=== PATIENT | female | born 1955 | race Caucasian/White ===

== ENCOUNTER → 2022-04-22 14:08 | Outpatient (CLI) | payer MEDICARE, SELFPAY | PROVIDERS: PCP Physician Assistant; Visit Provider Physician Assistant | DX: R30.0 Dysuria (principal); R35.0 Frequency of micturition | CPT/HCPCS: 87077; 87086; 87186 ==

== ENCOUNTER → 2022-05-07 11:20 | Outpatient (CLI) | payer MEDICARE, SELFPAY ==
[2022-05-07 20:26] LABS: Appearance Urine UA CLEAR; Bilirubin Urine UA NEGATIVE (NEGATIVE); Color Urine UA YELLOW; Glucose Urine UA NEGATIVE (Negative); Ketones Urine UA NEGATIVE (NEGATIVE); Leukocyte Esterase Urine UA NEGATIVE (NEGATIVE); Nitrite Urine UA NEGATIVE (Negative); Occult Blood Urine UA NEGATIVE (Negative); Protein Urine UA NEGATIVE (Negative); Specific Gravity Urine UA <=1.005 (1.000-1.035); Urobilinogen Urine UA 0.2 E.U./dL (0.2)
[2022-05-07 20:27] LABS: pH Urine UA 6.5 (4.5-8.0)
[2022-05-07 20:28] LABS: Bacteria Urine None Seen; Culture Indicated Urine Cult Not Indicated; RBC Urine 0-1/HPF (0-5/HPF); WBC Urine 0-1/HPF (0-5/HPF)
== END ==
PROVIDERS: PCP Physician Assistant; Visit Provider Physician Assistant
DX: Z91.89 Other specified personal risk factors, not elsewhere classified (principal)
CPT/HCPCS: 81001

== ENCOUNTER 2022-05-17 08:57 | Observation (INO) | payer MEDICARE, SELFPAY ==
[2022-05-17] VITALS (17 sets, daily range): BP systolic 123–172; BP diastolic 63–82; PULSE 72–94; RESP 14–31; TEMP 35.7–36.9; O2SAT 97–100; BMI 33.0
--- NOTE | 2022-05-17 09:18 | ED_ITS ---
HPI - General Adult General Chief complaint: Chest Pain Stated complaint: SOB/Dizzy/Tunnel Vision Time Seen by Provider: 05/17/22 09:00 History of Present Illness HPI narrative: 66-year-old woman postmenopausal with hypothyroidism, no hypertension, hyperlipidemia or diabetes and no significant family of heart disease presents after an episode of significant exertional dyspnea and pain. She describes walking up a slight incline from their boat up the doc this morning and developed significant substernal chest pain some pain along the posterior portion of her neck, significant dyspnea, diaphoresis and a sense that she was about to pass out. She got to the top of the walkway and symptoms improved significantly with rest. On arrival in the emergency department she had noted some mild neck pain and a sense of tightness across her chest only. She states that she has been in her usual state of health with no fevers, cough, chills, vomiting, diarrhea. About a month ago she had a bladder infection with an unusual pathogen and was post to have her urine re-cultured all of her urinary symptoms have resolved at this point. She describes no headaches. Related Data Home Medications Medication Instructions Recorded Confirmed dextroamphetamine-amphetamine 5 mg 5 mg PO DAILY 04/22/22 05/17/22 tablet (Adderall) levothyroxine 50 mcg capsule 37.5 mcg PO DAILY 04/22/22 05/17/22 progesterone micronized 100 mg 200 mg PO QAM 04/22/22 05/17/22 capsule Maxalt 10 mg PO DAILY PRN Migraine 05/17/22 05/17/22 Headache estradiol 0.05 mg/24 hr weekly See Rx Instructions .Route .COMPLEX 05/17/22 05/17/22 transdermal patch Allergies Allergy/AdvReac Type Severity Reaction Status Date / Time adhesive tape Allergy Mild Verified 04/22/22 14:43 octyl 2-cyanoacrylate Allergy Mild Verified 04/22/22 14:43 Dermabond AdvReac Unknown Uncoded 04/23/22 08:30 Review of Systems Review of Systems Narrative: Remainder of complete review of systems is otherwise unremarkable except for that included in the HPI. Patient History Medical History (Updated 05/17/22 @ 18:58 by Akosua Graham MD) Hypothyroid Postmenopausal Social History household members: spouse Smoking Status: Never smoker Smoking Status: Never smoker Exam Initial Vital Signs Initial Vital Signs: Vital Signs Temperature 98.4 F 05/17/22 09:00 Pulse Rate 83 05/17/22 09:00 Respiratory Rate 20 05/17/22 09:00 Blood Pressure 158/78 H 05/17/22 09:00 Pulse Oximetry 99 05/17/22 09:00 Oxygen Delivery Method 05/17/22 09:00 General: Healthy appearing, in no acute distress. Able to give a complete and coherent history. Well-nourished well-developed HEENT: Moist mucous membranes, normal sclera with reactive pupils, Neck: No JVD, supple Respiratory: Lungs are clear to auscultation, no wheezing no rales no rhonchi. Full and symmetrical air movement Cardiac: Regular rate and rhythm no murmurs no bruits Abdomen: Soft, nontender, good bowel tones, no flank pain Skin: Warm and dry, no rashes Neurologic: Grossly neurologically intact with no obvious asymmetries or abnormalities Extremities: No trauma, well perfused Psych: Cooperative, appropriate insight and affect Course Orders Ordered: ED Orders 05/17/22 10:30 Urine Culture Stat 05/17/22 10:48 Urinalysis and Microscopic Stat 05/17/22 11:50 Trop I [Troponin I] Stat 05/17/22 13:13 COVID19 -Nasal RAPID/Pre-Proc Stat Acetaminophen (Acetaminophen 325 Mg Tablet) 650 mg PO Q6HR PRN PRN Reason: Fever/Mild Pain (1-3) Aspirin (Aspirin Ec 81 Mg Tablet) 81 mg PO DAILY [facility] Levothyroxine Sodium (Levothyroxine 25 Mcg Tablet) 37.5 mcg PO 0600 [facility] Nitroglycerin (Nitroglycerin 0.4 Mg Sl Tab) 0.4 mg SL [id number] PRN PRN Reason: Chest Pain Stored In Pharmacy 0 each PO PRN PRN PRN Reason: . Progesterone (Progesterone, Micronized 100 Mg Capsule) 200 mg PO DAILY [facility] Discontinued Medications Aspirin (Aspirin 81 Mg Chew Tab) 324 mg PO NOW ONE Stop: 05/17/22 10:00 Last Admin: 05/17/22 10:45 Dose: 324 mg Documented By: CTS Nitroglycerin (Nitroglycerin 0.4 Mg Sl Tab) 0.4 mg SL [id number] PRN PRN Reason: Chest Pain Last Admin: 05/17/22 10:46 Dose: 0.4 mg Documented By: CTS Dextroamphetamine- Amphetamine [ Adderall] 5 Mg Tablet 5 mg PO DAILY [facility] Progesterone (Progesterone, Micronized 100 Mg Capsule) 200 mg PO DAILY [facility] Vital Signs Vital signs: Vital Signs - 8 hr 05/17/22 11:00 05/17/22 11:00 05/17/22 11:30 Pulse Rate 74 Respiratory Rate 14 Blood Pressure 132/66 148/82 H Pulse Oximetry 97 05/17/22 11:30 05/17/22 12:00 05/17/22 12:00 Pulse Rate 75 74 Respiratory Rate 24 Blood Pressure 148/66 H Pulse Oximetry 99 97 05/17/22 12:30 05/17/22 12:30 05/17/22 13:00 Pulse Rate 74 Respiratory Rate 18 Blood Pressure 140/67 145/69 H Pulse Oximetry 97 05/17/22 13:00 05/17/22 13:30 05/17/22 13:30 Pulse Rate 72 72 Respiratory Rate 18 18 Blood Pressure 135/63 Pulse Oximetry 97 98 Medical Decision Making Lab Data Result diagrams: 05/17/22 09:45 05/17/22 09:45 Labs: Lab Results 05/17/22 05/17/22 05/17/22 Range/Units 09:45 09:45 09:45 WBC 6.1 (4.5-11.0) X10^3/uL RBC 4.61 (4.0-5.2) X10^6/uL Hgb 13.2 (12.0-16.0) g/dL Hct 39.0 (36-46) % MCV 84.5 (80-100) fL MCH 28.7 (26-34) PG MCHC 34.0 (30-36) % RDW 14.5 (11.6-14.8) % Plt Count 237 (150-400) X10^3/uL Neut % (Auto) 58.1 (50-75) % Lymph % (Auto) 29.1 (25-40) % [place] % (Auto) 7.2 (3-14) % Eos % (Auto) 4.8 H (2-4) % Baso % (Auto) 0.8 (0-2) % Neut # (Auto) 3500 (9887-5050) /uL Lymph # (Auto) 1800 (7435-4980) /uL [place] # (Auto) 400 (0-900) /uL Eos # (Auto) 300 (0-450) /uL Baso # (Auto) 100 (0-100) /uL Sodium 140 (137-145) mmol/L Potassium 3.8 (3.4-5.1) mmol/L Chloride 107 (98-107) mmol/L Carbon Dioxide 25 (22-32) mmol/L BUN 15 (7-17) mg/dL Creatinine 0.78 (0.52-1.04) mg/dL Estimated GFR > 60 (>60) mL/min BUN/Creatinine Ratio 19.2 (6-22) Glucose 90 (80-110) mg/dL Hemoglobin A1c 5.5 (4.0-6.0) % Calcium 9.1 (8.4-10.2) mg/dL Magnesium 2.1 (1.6-2.3) mg/dL Total Bilirubin 0.3 (0.2-1.3) mg/dL AST 27 (14-36) IU/L ALT 22 (<35) IU/L Alkaline Phosphatase 60 (38-126) U/L Total Creatine Kinase 78 (30-135) U/L CK-MB (CK-2) TNP CK-MB (CK-2) Rel Index TNP Troponin I < 0.012 (0.01-0.034) ng/mL Total Protein 7.0 (6.3-8.2) g/dL Albumin 4.1 (3.5-5.0) g/dL Globulin 2.9 (1.7-4.1) g/dL Albumin/Globulin Ratio 1.4 (1.0-2.8) Triglycerides (35-150) mg/dL Cholesterol (140-199) mg/dL LDL Cholesterol, Calc (<100) mg/dL HDL Cholesterol (40-60) mg/dL Lipase 88 (23-300) U/L TSH (0.47-4.68) uIU/mL Urine Color Urine Appearance Urine pH (4.5-8.0) Ur Specific [place] (1.000-1.035) Urine Protein (Negative) Urine Glucose (UA) (Negative) g/dL Urine Ketones (NEGATIVE) Urine Occult Blood (Negative) Urine Nitrate (Negative) Urine Bilirubin (NEGATIVE) Urine Urobilinogen (0.2) E.U./dL Ur Leukocyte Esterase (NEGATIVE) Urine RBC (0-5/HPF) Urine WBC (0-5/HPF) Urine Bacteria (None) Ur Culture Indicated? Micro UA Comment SARS-CoV-2 (PCR) (Negative) 05/17/22 05/17/22 05/17/22 Range/Units 09:45 09:45 10:48 WBC (4.5-11.0) X10^3/uL RBC (4.0-5.2) X10^6/uL Hgb (12.0-16.0) g/dL Hct (36-46) % MCV (80-100) fL MCH (26-34) PG MCHC (30-36) % RDW (11.6-14.8) % Plt Count (150-400) X10^3/uL Neut % (Auto) (50-75) % Lymph % (Auto) (25-40) % [place] % (Auto) (3-14) % Eos % (Auto) (2-4) % Baso % (Auto) (0-2) % Neut # (Auto) (8621-4542) /uL Lymph # (Auto) (9822-4874) /uL [place] # (Auto) (0-900) /uL Eos # (Auto) (0-450) /uL Baso # (Auto) (0-100) /uL Sodium (137-145) mmol/L Potassium (3.4-5.1) mmol/L Chloride (98-107) mmol/L Carbon Dioxide (22-32) mmol/L BUN (7-17) mg/dL Creatinine (0.52-1.04) mg/dL Estimated GFR (>60) mL/min BUN/Creatinine Ratio (6-22) Glucose (80-110) mg/dL Hemoglobin A1c (4.0-6.0) % Calcium (8.4-10.2) mg/dL Magnesium (1.6-2.3) mg/dL Total Bilirubin (0.2-1.3) mg/dL AST (14-36) IU/L ALT (<35) IU/L Alkaline Phosphatase (38-126) U/L Total Creatine Kinase (30-135) U/L CK-MB (CK-2) CK-MB (CK-2) Rel Index Troponin I (0.01-0.034) ng/mL Total Protein (6.3-8.2) g/dL Albumin (3.5-5.0) g/dL Globulin (1.7-4.1) g/dL Albumin/Globulin Ratio (1.0-2.8) Triglycerides 156 H (35-150) mg/dL Cholesterol 170 (140-199) mg/dL LDL Cholesterol, Calc 90 (<100) mg/dL HDL Cholesterol 49 (40-60) mg/dL Lipase (23-300) U/L TSH 3.00 (0.47-4.68) uIU/mL Urine Color Yellow Urine Appearance Clear Urine pH 7.0 (4.5-8.0) Ur Specific [place] <=1.005 (1.000-1.035) Urine Protein Negative (Negative) Urine Glucose (UA) Negative (Negative) g/dL Urine Ketones Negative (NEGATIVE) Urine Occult Blood Negative (Negative) Urine Nitrate Negative (Negative) Urine Bilirubin Negative (NEGATIVE) Urine Urobilinogen 0.2 (0.2) E.U./dL Ur Leukocyte Esterase Negative (NEGATIVE) Urine RBC None seen (0-5/HPF) Urine WBC None seen (0-5/HPF) Urine Bacteria None seen (None) Ur Culture Indicated? Culture not indicate Micro UA Comment Microscopic normal SARS-CoV-2 (PCR) (Negative) 05/17/22 05/17/22 Range/Units 11:50 13:13 WBC (4.5-11.0) X10^3/uL RBC (4.0-5.2) X10^6/uL Hgb (12.0-16.0) g/dL Hct (36-46) % MCV (80-100) fL MCH (26-34) PG MCHC (30-36) % RDW (11.6-14.8) % Plt Count (150-400) X10^3/uL Neut % (Auto) (50-75) % Lymph % (Auto) (25-40) % [place] % (Auto) (3-14) % Eos % (Auto) (2-4) % Baso % (Auto) (0-2) % Neut # (Auto) (3355-6734) /uL Lymph # (Auto) (3594-5091) /uL [place] # (Auto) (0-900) /uL Eos # (Auto) (0-450) /uL Baso # (Auto) (0-100) /uL Sodium (137-145) mmol/L Potassium (3.4-5.1) mmol/L Chloride (98-107) mmol/L Carbon Dioxide (22-32) mmol/L BUN (7-17) mg/dL Creatinine (0.52-1.04) mg/dL Estimated GFR (>60) mL/min BUN/Creatinine Ratio (6-22) Glucose (80-110) mg/dL Hemoglobin A1c (4.0-6.0) % Calcium (8.4-10.2) mg/dL Magnesium (1.6-2.3) mg/dL Total Bilirubin (0.2-1.3) mg/dL AST (14-36) IU/L ALT (<35) IU/L Alkaline Phosphatase (38-126) U/L Total Creatine Kinase (30-135) U/L CK-MB (CK-2) CK-MB (CK-2) Rel Index Troponin I < 0.012 (0.01-0.034) ng/mL Total Protein (6.3-8.2) g/dL Albumin (3.5-5.0) g/dL Globulin (1.7-4.1) g/dL Albumin/Globulin Ratio (1.0-2.8) Triglycerides (35-150) mg/dL Cholesterol (140-199) mg/dL LDL Cholesterol, Calc (<100) mg/dL HDL Cholesterol (40-60) mg/dL Lipase (23-300) U/L TSH (0.47-4.68) uIU/mL Urine Color Urine Appearance Urine pH (4.5-8.0) Ur Specific [place] (1.000-1.035) Urine Protein (Negative) Urine Glucose (UA) (Negative) g/dL Urine Ketones (NEGATIVE) Urine Occult Blood (Negative) Urine Nitrate (Negative) Urine Bilirubin (NEGATIVE) Urine Urobilinogen (0.2) E.U./dL Ur Leukocyte Esterase (NEGATIVE) Urine RBC (0-5/HPF) Urine WBC (0-5/HPF) Urine Bacteria (None) Ur Culture Indicated? Micro UA Comment SARS-CoV-2 (PCR) Negative (Negative) Imaging Data Chest x-ray: Radiologist's Impression: FINDINGS:? ? Surgical changes and devices:? Apparent cholecystectomy clips are faintly seen. ? Lungs and pleura:? On this semiupright portable chest examination, no large pneumothorax or large pleural effusions are seen.? No focal infiltrates are seen.? Low lung volumes are noted. This causes a crowded appearance to the lung markings and limits evaluation.? ? Mediastinum:? Mediastinal contours appear normal.? Heart size is normal.? ? Bones and chest wall:? No suspicious bony lesions.? Age-appropriate bony degenerative changes are seen.? Mild dextroconvex scoliotic curvature is seen. ? ? Overlying soft tissues appear unremarkable.? ? ? IMPRESSION:? ? Limited portable chest examination, without a significant cardiopulmonary abnormality identified.? ? Postoperative and degenerative changes are seen.? ? Dictated by: Octavio Pereira M.D. on 05/17/2022 at 8:41 ? ? ECG Data Interpretation: Sinus rhythm at a rate of 83 1st degree block No acute ischemic changes MDM Narrative Medical decision making narrative: 4 points HEART Pathway Score High risk 12-65% 30-day MACE Admit to hospital or observation. Further testing indicated. INPUTS: History ?> 2 = Highly suspicious EKG ?> 0 = Normal Age ?> 2 = >=5 Risk factors ?> 0 = No known risk factors Initial troponin ?> 0 = <=ormal limit 66-year-old woman with fairly classic history cardiac angina while walking up a rather steep incline. Symptoms have essentially resolved. EKG does not show acute ischemia, 1st and 2nd troponins are unremarkable however her heart score is still 4 and observation is recommended. Care is reviewed with the hospitalist service who accepts admission. Care is reviewed with the patient who understands current plan. Because of recent UTI with unusual pathogen, she did ask that we culture her urine and that order has been placed. Discharge Plan Departure Patient Disposition: Admitted as Observation Clinical Impression: Unstable angina pectoris Admit Date/Time: 05/17/22 13:47 Admit Provider: Aiden Voss
--- NOTE | 2022-05-17 09:30 | DI.RAD.S_ITS ---
PROCEDURE: XR CHEST 1V INDICATIONS: chest pain TECHNIQUE: One view of the chest was acquired. COMPARISON: None. FINDINGS: Surgical changes and devices: Apparent cholecystectomy clips are faintly seen. Lungs and pleura: On this semiupright portable chest examination, no large pneumothorax or large pleural effusions are seen. No focal infiltrates are seen. Low lung volumes are noted. This causes a crowded appearance to the lung markings and limits evaluation. Mediastinum: Mediastinal contours appear normal. Heart size is normal. Bones and chest wall: No suspicious bony lesions. Age-appropriate bony degenerative changes are seen. Mild dextroconvex scoliotic curvature is seen. Overlying soft tissues appear unremarkable. IMPRESSION: Limited portable chest examination, without a significant cardiopulmonary abnormality identified. Postoperative and degenerative changes are seen. Dictated by: Octavio Pereira M.D. on 05/17/2022 at 8:41 Approved by: Octavio Pereira M.D. on 05/17/2022 at 8:42
[2022-05-17 09:52] LABS: Add Manual Diff / Slide Review NO; Basophils Absolute Auto 100 /uL (0-100); Basophils Percent Auto 0.8 % (0-2); Eosinophils Absolute Auto 300 /uL (0-450); Eosinophils Percent Auto 4.8 % (2-4); Hemoglobin 13.2 g/dL (12.0-16.0); Lymphocytes Absolute Auto 1800 /uL (1100-4500); Lymphocytes Percent Auto 29.1 % (25-40); Mean Corpuscular Hemoglobin 28.7 PG (26-34); Mean Corpuscular Volume 84.5 fL (80-100); Monocytes Absolute Auto 400 /uL (0-900); Monocytes Percent Auto 7.2 % (3-14); Neutrophils Absolute Auto 3500 /uL (1500-7000); Neutrophils Percent Auto 58.1 % (50-75); Platelet Count 237 X10^3/uL (150-400); Red Blood Cell Count 4.61 X10^6/uL (4.0-5.2); Red Cell Distribution Width 14.5 % (11.6-14.8); White Blood Cell Count 6.1 X10^3/uL (4.5-11.0)
[2022-05-17 10:07] LABS: Alanine Aminotransferase 22 IU/L (<35); Albumin 4.1 g/dL (3.5-5.0); Albumin Globulin Ratio 1.4 (1.0-2.8); Alkaline Phosphatase 60 U/L (38-126); Aspartate Aminotransferase 27 IU/L (14-36); BUN Creatinine Ratio 19.2 (6-22); Bilirubin Total 0.3 mg/dL (0.2-1.3); Blood Urea Nitrogen 15 mg/dL (7-17); Calcium 9.1 mg/dL (8.4-10.2); Carbon Dioxide 25 mmol/L (22-32); Chloride 107 mmol/L (98-107); Creatine Kinase 78 U/L (30-135); Estimated Glomerular Filt Rate > 60 mL/min (>60); Globulin 2.9 g/dL (1.7-4.1); Glucose 90 mg/dL (80-110); HEMOLYSIS < 15 (0-50); Lipase 88 U/L (23-300); Magnesium 2.1 mg/dL (1.6-2.3); Potassium 3.8 mmol/L (3.4-5.1); Sodium 140 mmol/L (137-145)
[2022-05-17 10:20] LABS: Troponin I < 0.012 ng/mL (0.01-0.034)
[2022-05-17] MEDS: ASPIRIN 81 MG CHEW TAB 324 MG PO (10:45)
[2022-05-17] MEDS: NITROGLYCERIN 0.4 MG SL TAB SL (10:46)
[2022-05-17 11:12] LABS: Appearance Urine UA CLEAR; Bilirubin Urine UA NEGATIVE (NEGATIVE); Color Urine UA YELLOW; Glucose Urine UA NEGATIVE (Negative); Ketones Urine UA NEGATIVE (NEGATIVE); Leukocyte Esterase Urine UA NEGATIVE (NEGATIVE); Nitrite Urine UA NEGATIVE (Negative); Occult Blood Urine UA NEGATIVE (Negative); Protein Urine UA NEGATIVE (Negative); Specific Gravity Urine UA <=1.005 (1.000-1.035); Urobilinogen Urine UA 0.2 E.U./dL (0.2)
[2022-05-17 11:19] LABS: Bacteria Urine None Seen; RBC Urine None Seen (0-5/HPF); Urine Comments Microscopic Normal; WBC Urine None Seen (0-5/HPF)
[2022-05-17 12:28] LABS: Troponin I < 0.012 ng/mL (0.01-0.034)
[2022-05-17 13:53] LABS: COVID19 -Nasal RAPID Negative (Negative)
[2022-05-17 16:28] LABS: Cholesterol 170 mg/dL (140-199); HDL Cholesterol 49 mg/dL (40-60); LDL Cholesterol Calculated 90 mg/dL (<100); Triglycerides 156 mg/dL (35-150)
[2022-05-17 16:29] LABS: Hemoglobin A1C% w Est Avg Glu 5.5 % (4.0-6.0)
--- NOTE | 2022-05-17 17:18 | DI.ECHO.S_ITS ---
[facility] +---------+ [facility] +---------+ : : [address] : : : : [id number] : : : : Phone: [phone] Echocardiogram Report + + :Name: SHY WOLF Study Date: 05/18/2022 Height: 66 in : :[facility] ReadingLocation: Weight: 205 lb : : Gender: Female BSA: 2.0 m2 : :: 1955 Age: 66 yrs BP: 123/65 mmHg: :Reason For Study: CHEST PAIN : :Ordering Physician: DAMIR GUNTER : :Cherelle Brian Performed By: Stephy Lobo : :Referring: DAMIR GUNTER D.O. : + + Interpretation Summary The ejection fraction is estimated to be 60-65%. Diastolic parameters suggest probable normal left ventricular diastolic function and normal filling pressures. The right ventricle is grossly normal size. The right ventricular systolic function is normal. There is trace aortic regurgitation. There is mild tricuspid regurgitation. The right ventricular systolic pressure is estimated to be at least 26 mmHg based on an estimated right atrial pressure of 3 mm Hg. Procedure: A two-dimensional transthoracic echocardiogram with color flow and Doppler was performed. The study quality was technically adequate. There is no prior echocardiogram noted for this patient. The patient was in sinus rhythm with heart rates between 59-68 bpm during the exam. Left Ventricle: The left ventricle is normal in size and wall thickness. The ejection fraction is estimated to be 60-65%. Diastolic parameters suggest probable normal left ventricular diastolic function and normal filling pressures. Right Ventricle: The right ventricle is grossly normal size. The right ventricular systolic function is normal. Atria: The left atrial size is normal. Right atrial size is normal. There is no Doppler evidence for an interatrial shunt. Mitral Valve: The mitral valve is normal in structure and function. There is no mitral regurgitation noted. Aortic Valve: The aortic valve is trileaflet. The aortic valve opens well. There is no aortic valve stenosis. There is trace aortic regurgitation. Tricuspid Valve: The tricuspid valve is normal in structure and function. There is mild tricuspid regurgitation. The right ventricular systolic pressure is estimated to be at least 26 mmHg based on an estimated right atrial pressure of 3 mm Hg. Pulmonic Valve: The pulmonic valve leaflets are thin and pliable; valve motion is normal. There is no pulmonic valvular regurgitation. Great Vessels: The aortic root is normal size. The ascending aorta is at the upper limits of normal in size. The IVC is of normal diameter and collapses greater than 50% with a sniff. This suggests a low right atrial pressure of 3 mm Hg. Pericardium/ Pleura There is no pericardial effusion. There is no pleural effusion. MMode/2D Measurements & Calculations LVIDd: 4.2 cm LVOT diam: 1.9 cm LVIDs: 2.7 cm Ao root diam: 3.8 cm FS: 35.2 % asc Aorta Diam: 3.8 cm IVSd: 0.86 cm Ao Arch Diam (Prox Trans): 2.7 cm LVPWd: 0.82 cm LV fernandes. diameter/BSA (cm/m^2): 2.1 LV sys. diameter/BSA (cm/m^2): 1.4 LA A2 area: 19.6 cm2 RA long axis: 5.3 cm LA A4 area: 17.1 cm2 RA area: 15.9 cm2 LA length (vol): 5.2 cm RA vol: 40.7 ml LA vol: 54.7 ml RA : 20.2 ml/m2 LA vol index: 27.1 ml/m2 IVC diam: 1.4 cm TAPSE: 1.7 cm Doppler Measurements & Calculations Ao V2 max: 171.9 cm/sec LVOT Max Wilfrid: 130.6 cm/sec Ao V2 mean: 119.3 cm/sec LV V1 max P.8 mmHg Ao max P.0 mmHg LV V1 VTI: 28.6 cm Ao mean P.5 mmHg DINAH(I,D): 2.0 cm2 Ao V2 VTI: 40.3 cm DINAH(V,D): 2.2 cm2 sev ratio: 0.71 DINAH indexed to BSA (cm^2/m^2): 1.0 MV E max wilfrid: 91.7 cm/sec TR max wilfrid: 238.3 cm/sec MV A max wilfrid: 97.6 cm/sec TR max P.7 mmHg MV E/A: 0.94 PA V2 max: 110.3 cm/sec Med Peak E' Wilfrid: 10.8 cm/sec PA V2 mean: 72.0 cm/sec E/E' med: 8.5 PA mean P.4 mmHg Lat Peak E' Wilfrid: 9.7 cm/sec PA pr(Accel): 25.9 mmHg E/E' lat: 9.4 E/e' average: 9.0 MV dec time: 0.23 sec SV(LVOT): 82.3 ml Reading Physician:11:11 AM
--- NOTE | 2022-05-17 19:55 | PM.HP.1 ---
History of Present Illness History of Present Illness Date Patient Seen: 05/17/22 Time Patient Seen: 13:00 Chief complaint: SOB/Dizzy/Tunnel Vision Narrative: Radha Langley is a 66-year-old female with past medical history of hypothyroidism and migraines who presents with acute substernal chest pain with exertion. Patient was climbing some stairs and developed pain which felt like a ?tight band across my bra line?. The pain was severe for approximately 5 minutes and then subsided over the next 10 minutes. Patient's father from a massive heart attack at age 55. Patient does not smoke, drinks occasionally and has no history of hypertension, high cholesterol or diabetes. She is never had this pain in her life. In the ED patient had negative trops x2. EKG was unremarkable. Patient was given aspirin loading and admitted for stress test. Patient History Medical History Hypothyroid Postmenopausal Family & Social History Social History: household members spouse Prior Living Arrangements House Safety & Behavioral: Feels Safe in Current Yes Environment Been Physically Hurt or No Threatened By a Person Tobacco & Substance use: Smoking Status Never smoker alcohol intake frequency holiday/special occasion Substance Use Type does not use Meds Home Medications and Allergies Home Medications Medication Instructions Recorded Confirmed Type dextroamphetamine-amphetamine 5 mg 5 mg PO DAILY 04/22/22 05/17/22 History tablet (Adderall) levothyroxine 50 mcg capsule 37.5 mcg PO DAILY 04/22/22 05/17/22 History progesterone micronized 100 mg 200 mg PO QAM 04/22/22 05/17/22 History capsule Maxalt 10 mg PO DAILY PRN Migraine 05/17/22 05/17/22 History Headache estradiol 0.05 mg/24 hr weekly See Rx Instructions .Route .COMPLEX 05/17/22 05/17/22 History transdermal patch Allergies Allergy/AdvReac Type Severity Reaction Status Date / Time adhesive tape Allergy Mild Verified 04/22/22 14:43 octyl 2-cyanoacrylate Allergy Mild Verified 04/22/22 14:43 Dermabond AdvReac Unknown Uncoded 04/23/22 08:30 Review of Systems Review of Systems Narrative: All other systems reviewed with the patient and are negative unless otherwise stated. Exam Vital Signs (past 8 hours): - 05/17/22 12:00 05/17/22 12:00 05/17/22 12:30 Temperature Pulse Rate 74 Respiratory Rate 24 Blood Pressure 148/66 H 140/67 Pulse Oximetry 97 Oxygen Delivery Method Oxygen Flow Rate 05/17/22 12:30 05/17/22 13:00 05/17/22 13:00 Temperature Pulse Rate 74 72 Respiratory Rate 18 18 Blood Pressure 145/69 H Pulse Oximetry 97 97 Oxygen Delivery Method Oxygen Flow Rate 05/17/22 13:30 05/17/22 13:30 05/17/22 14:13 Temperature Pulse Rate 72 Respiratory Rate 18 Blood Pressure 135/63 Pulse Oximetry 98 Oxygen Delivery Method Room Air Oxygen Flow Rate 05/17/22 15:54 05/17/22 19:41 Temperature 98 F 96.2 F L Pulse Rate 75 72 Respiratory Rate 18 18 Blood Pressure 149/68 H 123/65 Pulse Oximetry 98 97 Oxygen Delivery Method Oxygen Flow Rate 0 0 Oxygen Delivery Method Room Air Oxygen Flow Rate 0 Narrative Exam Narrative: GEN: no acute distress HEENT: moist mucous membranes, PERRL NECK: trachea midline, no JVD CV: regular rate and rhythm, faint systolic murmur at right upper sternal border PULM: clear bilaterally ABD: soft, nontender, nondistended, no organomegaly EXT: warm and well perfused with no edema NEURO: awake, alert, oriented, no focal deficits Objective Labs Result Diagrams: 05/17/22 09:45 05/17/22 09:45 Labs: Laboratory Results - last 24 hr 05/17/22 05/17/22 05/17/22 09:45 09:45 09:45 WBC 6.1 RBC 4.61 Hgb 13.2 Hct 39.0 MCV 84.5 MCH 28.7 MCHC 34.0 RDW 14.5 Plt Count 237 Neut % (Auto) 58.1 Lymph % (Auto) 29.1 [place] % (Auto) 7.2 Eos % (Auto) 4.8 H Baso % (Auto) 0.8 Neut # (Auto) 3500 Lymph # (Auto) 1800 [place] # (Auto) 400 Eos # (Auto) 300 Baso # (Auto) 100 Sodium 140 Potassium 3.8 Chloride 107 Carbon Dioxide 25 BUN 15 Creatinine 0.78 Estimated GFR > 60 BUN/Creatinine Ratio 19.2 Glucose 90 Hemoglobin A1c 5.5 Calcium 9.1 Magnesium 2.1 Total Bilirubin 0.3 AST 27 ALT 22 Alkaline Phosphatase 60 Total Creatine Kinase 78 CK-MB (CK-2) TNP CK-MB (CK-2) Rel Index TNP Troponin I < 0.012 Total Protein 7.0 Albumin 4.1 Globulin 2.9 Albumin/Globulin Ratio 1.4 Triglycerides Cholesterol LDL Cholesterol, Calc HDL Cholesterol Lipase 88 TSH Urine Color Urine Appearance Urine pH Ur Specific [place] Urine Protein Urine Glucose (UA) Urine Ketones Urine Occult Blood Urine Nitrate Urine Bilirubin Urine Urobilinogen Ur Leukocyte Esterase Urine RBC Urine WBC Urine Bacteria Ur Culture Indicated? Micro UA Comment SARS-CoV-2 (PCR) 05/17/22 05/17/22 05/17/22 09:45 09:45 10:48 WBC RBC Hgb Hct MCV MCH MCHC RDW Plt Count Neut % (Auto) Lymph % (Auto) [place] % (Auto) Eos % (Auto) Baso % (Auto) Neut # (Auto) Lymph # (Auto) [place] # (Auto) Eos # (Auto) Baso # (Auto) Sodium Potassium Chloride Carbon Dioxide BUN Creatinine Estimated GFR BUN/Creatinine Ratio Glucose Hemoglobin A1c Calcium Magnesium Total Bilirubin AST ALT Alkaline Phosphatase Total Creatine Kinase CK-MB (CK-2) CK-MB (CK-2) Rel Index Troponin I Total Protein Albumin Globulin Albumin/Globulin Ratio Triglycerides 156 H Cholesterol 170 LDL Cholesterol, Calc 90 HDL Cholesterol 49 Lipase TSH 3.00 Urine Color Yellow Urine Appearance Clear Urine pH 7.0 Ur Specific [place] <=1.005 Urine Protein Negative Urine Glucose (UA) Negative Urine Ketones Negative Urine Occult Blood Negative Urine Nitrate Negative Urine Bilirubin Negative Urine Urobilinogen 0.2 Ur Leukocyte Esterase Negative Urine RBC None seen Urine WBC None seen Urine Bacteria None seen Ur Culture Indicated? Culture not indicate Micro UA Comment Microscopic normal SARS-CoV-2 (PCR) 05/17/22 05/17/22 11:50 13:13 WBC RBC Hgb Hct MCV MCH MCHC RDW Plt Count Neut % (Auto) Lymph % (Auto) [place] % (Auto) Eos % (Auto) Baso % (Auto) Neut # (Auto) Lymph # (Auto) [place] # (Auto) Eos # (Auto) Baso # (Auto) Sodium Potassium Chloride Carbon Dioxide BUN Creatinine Estimated GFR BUN/Creatinine Ratio Glucose Hemoglobin A1c Calcium Magnesium Total Bilirubin AST ALT Alkaline Phosphatase Total Creatine Kinase CK-MB (CK-2) CK-MB (CK-2) Rel Index Troponin I < 0.012 Total Protein Albumin Globulin Albumin/Globulin Ratio Triglycerides Cholesterol LDL Cholesterol, Calc HDL Cholesterol Lipase TSH Urine Color Urine Appearance Urine pH Ur Specific [place] Urine Protein Urine Glucose (UA) Urine Ketones Urine Occult Blood Urine Nitrate Urine Bilirubin Urine Urobilinogen Ur Leukocyte Esterase Urine RBC Urine WBC Urine Bacteria Ur Culture Indicated? Micro UA Comment SARS-CoV-2 (PCR) Negative Assessment & Plan Assessment & Plan narrative: # acute typical substernal chest pain -occurred with exertion and relieved with rest. -patient with heart score of 4 and family history of father with massive heart attack at age 55. -trops negative x2, continue to trend -echocardiogram ordered -NPO at midnight on 05/19 for exercise stress test, patient can run on treadmill -nitroglycerin as needed -telemetry -check A1c, lipid panel # hypothyroidism, chronic -continue Synthroid -check TSH Code status is full code. COVID negative. DVT prophylaxis with SCDs and Lovenox. Proxy is Michael. I have reviewed home meds and used all available resources to reconcile the home meds. Time Spent With Patient Critical Care time: I spent a total of [] minutes of critical care time on this patient's care today; this time is exclusive of procedural time. Quality VTE Deep Vein Thrombosis/Pulmonary Embolism Present on Admission: No
[2022-05-18 00:38] VITALS: BP 99/68; PULSE 62; RESP 16; TEMP 36.3; O2SAT 97
[2022-05-18 04:35] VITALS: BP 123/63; PULSE 68; RESP 17; TEMP 36.4; O2SAT 98
[2022-05-18] MEDS: LEVOTHYROXINE 25 MCG TABLET 37.5 MCG PO (06:23)
--- NOTE | 2022-05-18 07:53 | PM.PN.1 ---
Subjective Subjective Date Patient Seen: 05/18/22 Time Patient Seen: 14:00 Interval history: Patient denies further chest pain. Has no complaints. Exam Vital Signs (past 8 hours): - 05/18/22 00:38 05/18/22 04:35 Temperature 97.4 F L 97.6 F Pulse Rate 62 68 Respiratory Rate 16 17 Blood Pressure 99/68 123/63 Pulse Oximetry 97 98 Oxygen Flow Rate 0 0 Oxygen Delivery Method Room Air Oxygen Flow Rate 0 Narrative Exam Narrative: GEN: no acute distress HEENT: moist mucous membranes, PERRL NECK: trachea midline, no JVD CV: regular rate and rhythm, faint systolic murmur at right upper sternal border PULM: clear bilaterally ABD: soft, nontender, nondistended, no organomegaly EXT: warm and well perfused with no edema NEURO: awake, alert, oriented, no focal deficits Objective Labs Result Diagrams: 05/18/22 07:55 05/18/22 07:55 Labs: Laboratory Results - last 24 hr 05/17/22 05/17/22 05/17/22 09:45 09:45 09:45 WBC 6.1 RBC 4.61 Hgb 13.2 Hct 39.0 MCV 84.5 MCH 28.7 MCHC 34.0 RDW 14.5 Plt Count 237 Neut % (Auto) 58.1 Lymph % (Auto) 29.1 [place] % (Auto) 7.2 Eos % (Auto) 4.8 H Baso % (Auto) 0.8 Neut # (Auto) 3500 Lymph # (Auto) 1800 [place] # (Auto) 400 Eos # (Auto) 300 Baso # (Auto) 100 Sodium 140 Potassium 3.8 Chloride 107 Carbon Dioxide 25 BUN 15 Creatinine 0.78 Estimated GFR > 60 BUN/Creatinine Ratio 19.2 Glucose 90 Hemoglobin A1c 5.5 Calcium 9.1 Magnesium 2.1 Total Bilirubin 0.3 AST 27 ALT 22 Alkaline Phosphatase 60 Total Creatine Kinase 78 CK-MB (CK-2) TNP CK-MB (CK-2) Rel Index TNP Troponin I < 0.012 Total Protein 7.0 Albumin 4.1 Globulin 2.9 Albumin/Globulin Ratio 1.4 Triglycerides Cholesterol LDL Cholesterol, Calc HDL Cholesterol Lipase 88 TSH Urine Color Urine Appearance Urine pH Ur Specific [place] Urine Protein Urine Glucose (UA) Urine Ketones Urine Occult Blood Urine Nitrate Urine Bilirubin Urine Urobilinogen Ur Leukocyte Esterase Urine RBC Urine WBC Urine Bacteria Ur Culture Indicated? Micro UA Comment SARS-CoV-2 (PCR) 05/17/22 05/17/22 05/17/22 09:45 09:45 10:48 WBC RBC Hgb Hct MCV MCH MCHC RDW Plt Count Neut % (Auto) Lymph % (Auto) [place] % (Auto) Eos % (Auto) Baso % (Auto) Neut # (Auto) Lymph # (Auto) [place] # (Auto) Eos # (Auto) Baso # (Auto) Sodium Potassium Chloride Carbon Dioxide BUN Creatinine Estimated GFR BUN/Creatinine Ratio Glucose Hemoglobin A1c Calcium Magnesium Total Bilirubin AST ALT Alkaline Phosphatase Total Creatine Kinase CK-MB (CK-2) CK-MB (CK-2) Rel Index Troponin I Total Protein Albumin Globulin Albumin/Globulin Ratio Triglycerides 156 H Cholesterol 170 LDL Cholesterol, Calc 90 HDL Cholesterol 49 Lipase TSH 3.00 Urine Color Yellow Urine Appearance Clear Urine pH 7.0 Ur Specific [place] <=1.005 Urine Protein Negative Urine Glucose (UA) Negative Urine Ketones Negative Urine Occult Blood Negative Urine Nitrate Negative Urine Bilirubin Negative Urine Urobilinogen 0.2 Ur Leukocyte Esterase Negative Urine RBC None seen Urine WBC None seen Urine Bacteria None seen Ur Culture Indicated? Culture not indicate Micro UA Comment Microscopic normal SARS-CoV-2 (PCR) 05/17/22 05/17/22 11:50 13:13 WBC RBC Hgb Hct MCV MCH MCHC RDW Plt Count Neut % (Auto) Lymph % (Auto) [place] % (Auto) Eos % (Auto) Baso % (Auto) Neut # (Auto) Lymph # (Auto) [place] # (Auto) Eos # (Auto) Baso # (Auto) Sodium Potassium Chloride Carbon Dioxide BUN Creatinine Estimated GFR BUN/Creatinine Ratio Glucose Hemoglobin A1c Calcium Magnesium Total Bilirubin AST ALT Alkaline Phosphatase Total Creatine Kinase CK-MB (CK-2) CK-MB (CK-2) Rel Index Troponin I < 0.012 Total Protein Albumin Globulin Albumin/Globulin Ratio Triglycerides Cholesterol LDL Cholesterol, Calc HDL Cholesterol Lipase TSH Urine Color Urine Appearance Urine pH Ur Specific [place] Urine Protein Urine Glucose (UA) Urine Ketones Urine Occult Blood Urine Nitrate Urine Bilirubin Urine Urobilinogen Ur Leukocyte Esterase Urine RBC Urine WBC Urine Bacteria Ur Culture Indicated? Micro UA Comment SARS-CoV-2 (PCR) Negative PFSH Medical History Hypothyroid Postmenopausal Social History household members: spouse Smoking Status: Never smoker Assessment & Plan Assessment & Plan narrative: # acute typical substernal chest pain -occurred with exertion and relieved with rest. -patient with heart score of 4 and family history of father with massive heart attack at age 55. -trops negative x2, continue to trend -echocardiogram with normal EF 60-65% and mild tricuspid regurg -NPO at midnight on 05/19 for exercise stress test, patient can run on treadmill -nitroglycerin as needed -telemetry -A1c, lipid panel normal # hypothyroidism, chronic -continue Synthroid -TSH 3 Code status is full code. COVID negative. DVT prophylaxis with SCDs and Lovenox. Proxy is Michael. I have reviewed home meds and used all available resources to reconcile the home meds. Dispo: D/c if stress test normal on 05/19. Time Spent With Patient Critical Care time: I spent a total of [] minutes of critical care time on this patient's care today; this time is exclusive of procedural time. Quality VTE Deep Vein Thrombosis/Pulmonary Embolism Present on Admission: No
[2022-05-18 08:08] VITALS: BP 121/63; PULSE 63; RESP 15; TEMP 36.6; O2SAT 99
[2022-05-18 08:31] LABS: Add Manual Diff / Slide Review NO; Basophils Absolute Auto 0 /uL (0-100); Basophils Percent Auto 0.9 % (0-2); Eosinophils Absolute Auto 300 /uL (0-450); Eosinophils Percent Auto 7.4 % (2-4); Hematocrit 39.1 % (36-46); Hemoglobin 13.3 g/dL (12.0-16.0); Lymphocytes Absolute Auto 1800 /uL (1100-4500); Lymphocytes Percent Auto 40.7 % (25-40); Mean Corpuscular Hemoglobin 28.9 PG (26-34); Monocytes Absolute Auto 400 /uL (0-900); Monocytes Percent Auto 7.9 % (3-14); Neutrophils Absolute Auto 1900 /uL (1500-7000); Neutrophils Percent Auto 43.1 % (50-75); Platelet Count 228 X10^3/uL (150-400); Red Cell Distribution Width 14.6 % (11.6-14.8); White Blood Cell Count 4.5 X10^3/uL (4.5-11.0)
[2022-05-18] MEDS: ASPIRIN EC 81 MG TABLET PO (08:37)
[2022-05-18 08:40] LABS: Blood Urea Nitrogen 13 mg/dL (7-17); Calcium 9.1 mg/dL (8.4-10.2); Carbon Dioxide 27 mmol/L (22-32); Chloride 103 mmol/L (98-107); Estimated Glomerular Filt Rate > 60 mL/min (>60); Glucose 98 mg/dL (80-110); HEMOLYSIS < 15 (0-50); Potassium 4.1 mmol/L (3.4-5.1); Sodium 139 mmol/L (137-145)
--- NOTE | 2022-05-18 09:40 | CM.DANOTE ---
Patient is a 66 yo female who was admitted on 05/17/22 for SOB/Chest Pain. Pt has [facility] and [employer] for insurance and her PCP is Neelima Rosado at the [facility]. EMR was reviewed. Per MD, pt with chest pain r/o due to family hx and Echo today and stress test tomorrow as not available today. SW met bedside with pt and explained role and pt confirms she lives half the year on [facility] with her and the other half they go back to [place] but they are in the process of next year selling their place in [place] and moving night time babysitter to [facility]. Pt is active and independent at baseline and does not use DME and denies any hx of HH or SNF. Pt's DPOA is her spouse and they have an adult son that lives locally as well. Pt's only concern with d/c is that spouse and son are currently in [place] for pt's mother elise's and were not planning to come back until . Pt aware that if stress test results are normal she will likely be stable for d/c tomorrow Thu afternoon. Discussed that spouse may return home early to provide transport vs [place] [employer] and then have friend pick her up on the way back. Plan: SW to follow for Echo and Stress test results towards likely d/c home tomorrow if medically stable and to confirm transport for pt home. KEVIN Mitchell Discharge Planning/Care Management CM Discharge Assessment Start: 05/18/22 09:38 Freq: Status: Active Protocol: Document 05/18/22 09:38 BF (Rec: 05/18/22 09:40 [id number]) Discharge Planning Assessment Assigned Tent Assembler KEVIN Dennis DPOA/Assigned Designee Name spouse Michael Sanders Contact Information [phone] Advance Directives? No Advance Directives on File No History Provided By Patient,Medical Record Has Patient been admitted in last 30 No days? Prior Living Arrangements House Household Members spouse Type of transporation used prior to Drives own vehicle admit Independent with ADL's Yes Is patient alert and oriented? Yes Caregiver for Another No Barriers to Discharge No Discharge Plan Home Transportation Arrangement Pt's spouse will either come back from [place] to transport at d/c or pt will needs [employer] [place] to [place] Referrals Initiated None needed Additional Comment Pending Echo and stress test Whiteboard Updated in Patient Room with Yes name and ext. # of Tent Assembler Review Status In Process Please Provide Date Initial DC 05/18/22 Assessment Was Performed Next Review Type Continued Stay Review
[2022-05-18] MEDS: ACETAMINOPHEN 325 MG TABLET 650 MG PO (10:59)
[2022-05-18 11:13] VITALS: BP 120/58; PULSE 66; RESP 15; TEMP 36.5; O2SAT 100
[2022-05-18 16:13] VITALS: BP 125/55; PULSE 67; RESP 15; TEMP 36.4; O2SAT 100
[2022-05-18 20:00] VITALS: BP 119/69; PULSE 76; RESP 19; TEMP 37.1; O2SAT 97
[2022-05-18 21:09] LABS: Troponin I < 0.012 ng/mL (0.01-0.034)
--- NOTE | 2022-05-18 22:09 | PC.NURSE ---
Pt cooperative w/ staff and care, very pleasant. Pt had headache earlier today, but denies headache and pain at this time. Pt resting in bed comfortably.
[2022-05-19] VITALS: BP 131/73; PULSE 65; RESP 17; TEMP 36.7; O2SAT 98
[2022-05-19 04:00] VITALS: BP 121/69; PULSE 62; RESP 16; TEMP 36.3; O2SAT 98
[2022-05-19 04:05] VITALS: RESP 16
[2022-05-19] MEDS: LEVOTHYROXINE 25 MCG TABLET 37.5 MCG PO (05:32)
[2022-05-19 08:05] VITALS: BP 115/71; PULSE 60; RESP 16; TEMP 36.3; O2SAT 98
[2022-05-19] MEDS: ASPIRIN EC 81 MG TABLET PO (09:15)
[2022-05-19 12:00] VITALS: BP 105/71; PULSE 66; RESP 18; TEMP 36.4; O2SAT 97
[2022-05-19 15:40] VITALS: BP 125/63; PULSE 93; RESP 16; TEMP 36.2; O2SAT 98
--- NOTE | 2022-05-19 17:27 | PM.DS.1 ---
History of Present Illness History of Present Illness Date Patient Seen: 05/19/22 Time Patient Seen: 17:27 Chief complaint: SOB/Dizzy/Tunnel Vision Narrative: Per Dr. Voss, Radha Langley is a 66-year-old female with past medical history of hypothyroidism and migraines who presents with acute substernal chest pain with exertion. Patient was climbing some stairs and developed pain which felt like a ?tight band across my bra line?. The pain was severe for approximately 5 minutes and then subsided over the next 10 minutes. Patient's father from a massive heart attack at age 55. Patient does not smoke, drinks occasionally and has no history of hypertension, high cholesterol or diabetes. She is never had this pain in her life. In the ED patient had negative trops x2. EKG was unremarkable. Patient was given aspirin loading and admitted for stress test. Discharge Providers Provider Date of admission: 05/17/22 13:47 Discharge Date: 05/19/22 Primary care physician: Neelima Rosado PA-C Discharge provider: Fidel Loaiza DO Summary Hospital Course Discharge Diagnosis: # acute typical substernal chest pain # hypothyroidism, chronic Hospital Course: This is a 66 year old female admitted for further risk stratification for typical sounding chest pain. Troponins were negative and EKG showed no ischemic findings. Echocardiogram was unremarkable. Treadmill stress testing was deemed low risk. I recommended she follow up with primary care provider after discharge to review her hospitalization. No medication changes are recommended at the time of discharge. Exam Vital Signs (past 8 hours): - 05/19/22 12:00 05/19/22 15:40 Temperature 97.5 F L 97.2 F L Pulse Rate 66 93 H Respiratory Rate 18 16 Blood Pressure 105/71 125/63 Pulse Oximetry 97 98 Oxygen Flow Rate 0 0 Oxygen Delivery Method Room Air Oxygen Flow Rate 0 Narrative Exam Narrative: GEN: no acute distress HEENT: moist mucous membranes, PERRL NECK: trachea midline, no JVD CV: regular rate and rhythm, faint systolic murmur at right upper sternal border PULM: clear bilaterally ABD: soft, nontender, nondistended, no organomegaly EXT: warm and well perfused with no edema NEURO: awake, alert, oriented, no focal deficits Objective Labs Result Diagrams: 05/18/22 07:55 05/18/22 07:55 Labs: Laboratory Results - last 24 hr 05/18/22 20:33 Troponin I < 0.012 PFSH Medical History Hypothyroid Postmenopausal Social History household members: spouse Smoking Status: Never smoker Discharge Plan Discharge Plan Patient Disposition: Home Provider Discharge Comment: You were admitted to the hospital with chest discomfort. You had a negative stress test which was negative. No medication changes are necessary at this time. Please follow up with PCP for further evaluation if symptoms recur or if severe you may need to return to the ER. Urine culture was sent on 05/17 and had what we call mixed earlene, unlikely that you have a continued infection. Discharge orders & Medications Prescriptions: Continued estradiol 0.05 mg/24 hr patch weekly See Rx Instructions .ROUTE .COMPLEX Label Comments: PLACE 1 PATCH ONTO THE SKIN EVERY 7 (SEVEN) DAYS USE INSTRUCTED Rx Instructions: 1 patch q7days Maxalt 10 MG 10 mg PO DAILY PRN (Reason: Migraine Headache) dextroamphetamine-amphetamine [Adderall] 5 mg tablet 5 mg PO DAILY Label Comments: Does not want to take while admitted levothyroxine 50 mcg capsule 37.5 mcg PO DAILY Rx Instructions: RX bottle reads 25mcg tablets progesterone micronized 100 mg capsule 200 mg PO QAM Rx Instructions: for 10 days then off for 20 days, then repeat Follow up/Referrals: Neelima Rosado PA-C [Primary Care Provider] - Diet/Activity/Treatments Diet: Diet as Tolerated Activity: As tolerated. Visit Report/Discharge Packet Instructions: DI for Atypical Chest Pain, DI for Chest Pain Discharge Data Primary Care Provider: Neelima Rosado Attending Provider: Aiden Voss VTE Deep Vein Thrombosis/Pulmonary Embolism Present on Admission: No
--- NOTE | 2022-05-19 18:30 | DI.NM.S_ITS ---
DATE OF SERVICE: 05/19/2022 PROCEDURE PERFORMED: Exercise stress test. INDICATION: Chest pain. CARDIAC STRESS: The patient underwent exercise stress test under the supervision of an attending staff. The patient walked on [place] protocol for 8 minutes and 17 seconds, achieved 101 percent of target heart rate and normal blood pressure response. Baseline blood pressure 140/80 mmHg. Peak blood pressure 188/65 mmHg. Resting heart rate 85. CAROLANN - 31 percent and patient achieved 10.1 METS of workload. Baseline rhythm sinus with first-degree AV block. During stress, some nonspecific ST changes without any convincing ischemic changes. Occasional PVCs. No sustained ventricular tachycardia or atrial fibrillation. No chest discomfort. The patient has some shortness of breath. CONCLUSION: Exercise stress test negative for any obvious inducible ischemia. Good exercise tolerance. Normal heart hemodynamic response. No chest pain. Occasional premature ventricular contractions without any complex arrhythmias. Overall low-risk exercise stress test. Radha Langley - Angel Luis/raimundo doc#: [id number]/job#: [id number] dd: 05/19/2022 16:44:00 dt: 05/19/2022 17:45:00 DICTATING /COPIES TO: Hanane Bowles MD COPIES MNE: MELY;
--- NOTE | 2022-05-19 19:00 | PC.NURSE ---
Discharge NotePatient A&O, VSS, RA, no complaints of pain/discomfort. Discharge packet reviewed with patient, all questions/concerns. PIV/TELE discontinued. Patient able to pack all belongings and dressed self. Patient taken down to await for taxi.
== END 2022-05-19 18:50 | disposition home or self-care (01) ==
LOC: ED 13:21 → AC 13:48
PROVIDERS: Admitting Provider Student in an Organized Health Care Education/Training Program; Emergency Provider Emergency Medicine; PCP Physician Assistant; Referring Provider Emergency Medicine; Visit Provider Student in an Organized Health Care Education/Training Program
DX: R07.9 Chest pain, unspecified (principal); R42 Dizziness and giddiness; R06.02 Shortness of breath; E03.9 Hypothyroidism, unspecified; Z20.822 Contact with and (suspected) exposure to COVID-19
CPT/HCPCS: 36415; 71045; 80048; 80053; 80061; 81001; 82550; 83036; 83690; 83735; 84443; 84484; 85025; 87086; 87635; 93005; 93017; 93306; 99284; C9803; G0378

== ENCOUNTER → 2023-08-04 09:36 | Outpatient (CLI) | payer MEDICARE, SELFPAY ==
[2022-05-17 14:13] VITALS: BMI 33.0
== END ==
PROVIDERS: PCP Physician Assistant; Visit Provider Family Medicine
DX: N39.0 Urinary tract infection, site not specified (principal)
CPT/HCPCS: 87077; 87086; 87186

== ENCOUNTER → 2023-08-13 09:46 | Outpatient (CLI) | payer MEDICARE, SELFPAY ==
[2022-05-17 14:13] VITALS: BMI 33.0
== END ==
PROVIDERS: PCP Physician Assistant; Visit Provider Physician Assistant Medical
DX: R39.89 Other symptoms and signs involving the genitourinary system (principal)
CPT/HCPCS: 87086

== ENCOUNTER → 2024-01-14 08:55 | Outpatient (CLI) | payer MEDICARE, SELFPAY ==
[2022-05-17 14:13] VITALS: BMI 33.0
[2024-01-14 21:39] LABS: Add Manual Diff / Slide Review NO; Basophils Absolute Auto 0 /uL (0-100); Basophils Percent Auto 0.7 % (0-2); Eosinophils Absolute Auto 400 /uL (0-450); Hemoglobin 12.8 g/dL (12.0-16.0); Lymphocytes Absolute Auto 1800 /uL (1100-4500); Mean Corpuscular HGB Conc 33.6 % (30-36); Mean Corpuscular Volume 86.2 fL (80-100); Monocytes Absolute Auto 400 /uL (0-900); Monocytes Percent Auto 7.6 % (3-14); Neutrophils Absolute Auto 3200 /uL (1500-7000); Neutrophils Percent Auto 54.7 % (50-75); Platelet Count 228 X10^3/uL (150-400); Red Blood Cell Count 4.41 X10^6/uL (4.0-5.2); Red Cell Distribution Width 14.8 % (11.6-14.8); White Blood Cell Count 5.9 X10^3/uL (4.5-11.0)
[2024-01-14 22:13] LABS: Alanine Aminotransferase 23 IU/L (<35); Albumin Globulin Ratio 1.7 (1.0-2.8); Alkaline Phosphatase 64 U/L (38-126); Aspartate Aminotransferase 26 IU/L (14-36); BUN Creatinine Ratio 22.1 (6-22); Bilirubin Total 0.5 mg/dL (0.2-1.3); Blood Urea Nitrogen 17 mg/dL (7-17); Calcium 9.4 mg/dL (8.4-10.2); Carbon Dioxide 25 mmol/L (22-32); Chloride 106 mmol/L (98-107); Cholesterol 197 mg/dL (140-199); Estimated Glomerular Filt Rate > 60 mL/min (>60); Globulin 2.4 g/dL (1.7-4.1); Glucose 101 mg/dL (80-110); HDL Cholesterol 70 mg/dL (40-60); HEMOLYSIS < 15 (0-50); LDL Cholesterol Calculated 114 mg/dL (<100); Potassium 4.4 mmol/L (3.4-5.1); Sodium 137 mmol/L (137-145); Total Protein 6.4 g/dL (6.3-8.2); Triglycerides 67 mg/dL (35-150)
[2024-01-14 23:09] LABS: TSH w/ Reflex to FT4 0.66 uIU/mL (0.47-4.68)
== END ==
PROVIDERS: PCP Family Medicine; Visit Provider Physician Assistant
DX: Z13.6 Encounter for screening for cardiovascular disorders (principal); E03.9 Hypothyroidism, unspecified; Z79.899 Other long term (current) drug therapy
CPT/HCPCS: 80053; 80061; 84443; 85025

== ENCOUNTER → 2024-02-03 14:47 | Outpatient (CLI) | payer MEDICARE, SELFPAY ==
[2022-05-17 14:13] VITALS: BMI 33.0
== END ==
PROVIDERS: PCP Family Medicine; Visit Provider Physician Assistant Medical
DX: R30.0 Dysuria (principal)
CPT/HCPCS: 87086

== ENCOUNTER → 2024-02-04 13:11 | Outpatient (CLI) | payer MEDICARE, SELFPAY ==
[2022-05-17 14:13] VITALS: BMI 33.0
[2024-02-05 20:34] LABS: Hemoglobin A1C% w Est Avg Glu 5.6 % (4.0-6.0)
[2024-02-05 21:00] LABS: Vitamin D 25 Hydroxy (D3) 27.9 ng/mL (30.0-100.0)
[2024-02-05 21:03] LABS: Thyroid Stimulating Hormone 2.92 uIU/mL (0.47-4.68)
== END ==
PROVIDERS: PCP Family Medicine; Visit Provider Family Medicine
DX: R73.09 Other abnormal glucose (principal); E03.9 Hypothyroidism, unspecified; R73.9 Hyperglycemia, unspecified; E55.9 Vitamin D deficiency, unspecified; Z96.649 Presence of unspecified artificial hip joint; Z90.49 Acquired absence of other specified parts of digestive tract; Z98.891 History of uterine scar from previous surgery
CPT/HCPCS: 82306; 83036; 84443

== ENCOUNTER → 2025-01-03 13:01 | Outpatient (CLI) | payer MEDICARE, SELFPAY ==
[2022-05-17 14:13] VITALS: BMI 33.0
[2025-01-03 19:28] LABS: Vitamin D 25 Hydroxy (D3) 25.9 ng/mL (30.0-100.0)
[2025-01-03 19:42] LABS: Thyroid Stimulating Hormone 2.46 uIU/mL (0.47-4.68)
== END ==
PROVIDERS: PCP Family Medicine; Visit Provider Family Medicine
DX: E55.9 Vitamin D deficiency, unspecified (principal); E03.9 Hypothyroidism, unspecified
CPT/HCPCS: 82306; 84443

== ENCOUNTER → 2025-02-07 10:34 | Outpatient (CLI) | payer MEDICARE, SELFPAY ==
[2022-05-17 14:13] VITALS: BMI 33.0
[2025-02-07 19:56] LABS: Hemoglobin A1C% w Est Avg Glu 5.1 % (4.0-6.0)
[2025-02-07 20:03] LABS: Alanine Aminotransferase 21 IU/L (<35); Albumin 4.3 g/dL (3.5-5.0); Albumin Globulin Ratio 1.8 (1.0-2.8); Alkaline Phosphatase 64 U/L (38-126); Aspartate Aminotransferase 29 IU/L (14-36); BUN Creatinine Ratio 19.2 (6-22); Bilirubin Total 0.6 mg/dL (0.2-1.3); Blood Urea Nitrogen 14 mg/dL (7-17); Calcium 9.9 mg/dL (8.4-10.2); Carbon Dioxide 27 mmol/L (22-32); Chloride 103 mmol/L (98-107); Cholesterol 199 mg/dL (140-199); Estimated Glomerular Filt Rate > 60 mL/min (>60); Globulin 2.4 g/dL (1.7-4.1); Glucose 87 mg/dL (70-99); HDL Cholesterol 68 mg/dL (40-60); HEMOLYSIS < 15 (0-50); LDL Cholesterol Calculated 116 mg/dL (<100); Potassium 4.7 mmol/L (3.4-5.1); Sodium 137 mmol/L (137-145); Total Protein 6.7 g/dL (6.3-8.2); Triglycerides 76 mg/dL (35-150)
[2025-02-07 20:35] LABS: TSH w/ Reflex to FT4 4.65 uIU/mL (0.47-4.68)
[2025-02-07 20:39] LABS: Ferritin 37 ng/mL (11-264)
== END ==
PROVIDERS: PCP Family Medicine; Visit Provider Family Medicine
DX: R68.89 Other general symptoms and signs (principal); Z86.2 Personal history of diseases of the blood and blood-forming organs and certain disorders involving the immune mechanism; R73.9 Hyperglycemia, unspecified; E03.9 Hypothyroidism, unspecified
CPT/HCPCS: 80053; 80061; 82728; 83036; 84443

== ENCOUNTER 2025-03-26 16:00 | Emergency (ER) | payer MEDICARE, SELFPAY ==
[2022-05-17 14:13] VITALS: BMI 33.0
[2025-03-26 16:54] VITALS: BP 162/72; PULSE 70; RESP 14; TEMP 36.7; O2SAT 99; BMI 34.6
[2025-03-26 17:47] LABS: Culture Indicated Urine Specimen Cultured
[2025-03-26 20:42] VITALS: BP 144/76; PULSE 67; TEMP 36.9; O2SAT 99
[2025-03-27 00:17] VITALS: BP 142/69; PULSE 75; O2SAT 99
[2025-03-27 00:30] VITALS: BP 154/81; PULSE 64; RESP 16; O2SAT 100
--- NOTE | 2025-03-27 00:46 | ED_ITS ---
HPI - Female Genitourinary General Chief complaint: Urogenital-Female Stated complaint: uti, possible kidney infection Time Seen by Provider: 03/27/25 00:26 Source: patient Mode of arrival: Ambulatory History of Present Illness HPI Narrative: 69-year-old female with history of prior kidney infection, no history of kidney stone, has frequency of urination and painful urination for the last couple of days, sensation of right back pain. No fevers or chills. No nausea or vomiting. No diarrhea. Not currently or recently on antibiotics. Related Data Home Medications ?Medication ?Instructions ?Recorded ?Confirmed estradiol 0.05 mg/24 hr weekly 1 patch transdermal QWE EK 05/16/24 02/16/25 transdermal patch progesterone micronized 100 mg 200 mg PO QAM 05/16/24 02/16/25 capsule Previous Rx's ?Medication ?Instructions ?Recorded estradiol 0.01% (0.1 mg/gram) See Rx Instructions vagi nal DAILY 10/19/24 vaginal cream #42.5 grams levothyroxine 25 mcg tablet 25 mcg PO DAILY thyroid me dication 11/02/24 - takes every day #90 tabs rizatriptan 10 mg tablet See Rx Instructions PO .COMP KLAUDIA 12/02/24 PRN migraine headache #12 tabs albuterol sulfate 90 mcg/actuation See Rx Instructions inhalation 02/02/25 aerosol inhaler (Ventolin HFA) Q4-6H PRN shortness of breath or wheezing #8.5 grams semaglutide 14 mg tablet 14 mg PO DAILY take multivit krueger 02/06/25 every day. #90 tabs dextroamphetamine-amphetamine 10 10 mg PO DAILY ok to skip days and 02/16/25 mg tablet (Adderall) weekends #30 tabs cefdinir 300 mg capsule 300 mg PO BID 10 days #20 ca ps 03/27/25 Allergies Allergy/AdvReac Type Severity Reaction Status Date / Time 2-octyl cyanoacrylate (octyl Allergy Mild Verified 03/26/25 16:54 2-cyanoacrylate) adhesive tape Allergy Mild Verified 03/26/25 16:54 Dermabond AdvReac Unknown Uncoded 03/26/25 16:54 Patient History Medical History (Updated 03/27/25 @ 01:01 by Tigre Luis MD) History of melanoma Migraine with aura Blood glucose elevated Elevated blood pressure reading Hypothyroid Postmenopausal Surgical History (Updated 01/21/24 @ 14:15 by Yolande Sparks MD) H/O melanoma excision S/P cholecystectomy History of History of hip replacement, total Exam Narrative Exam Narrative: GENERAL: Well-developed patient, in mild distress. HEAD: Atraumatic. Normocephalic. EYES: Pupils equal round and reactive. Extraocular motions intact. No scleral icterus. No injection or drainage. ENT: Nose without bleeding, purulent drainage. Airway patent. NECK: Trachea midline. Non tender CARDIOVASCULAR: Regular rate and rhythm without murmurs, gallops, or rubs. RESPIRATORY: Clear to auscultation. Breath sounds equal bilaterally. No wheezes, rales, or rhonchi. GASTROINTESTINAL: Abdomen soft, non-tender, nondistended. EXTREMITIES: No edema or joint tenderness. BACK: Nontender without deformity or crepitance. No flank tenderness. NEURO: AOx3. Motor functions grossly nonfocal. SKIN: No rash or erythema of visible areas Initial Vital Signs Initial Vital Signs: Vital Signs Temperature 98.0 F 03/26/25 16:54 Pulse Rate 70 03/26/25 16:54 Respiratory Rate 14 03/26/25 16:54 Blood Pressure 162/72 H 03/26/25 16:54 Pulse Oximetry 99 03/26/25 16:54 Oxygen Delivery Method Room Air 03/26/25 16:54 Course Orders Ordered: Discontinued Medications Cefdinir (Cefdinir 300 Mg Capsule) 300 mg PO NOW ONE Stop: 03/27/25 00:58 Last Admin: 03/27/25 01:06 Dose: 300 mg Documented By: [facility] Phenazopyridine HCl (Phenazopyridine 100 Mg Tablet) 200 mg PO NOW ONE Stop: 03/27/25 01:06 Last Admin: 03/27/25 01:08 Dose: 200 mg Documented By: [facility] Vital Signs Vital signs: Vital Signs - 8 hr 03/26/25 20:42 03/27/25 00:17 03/27/25 00:17 Temperature 98.4 F Pulse Rate 67 75 Respiratory Rate Blood Pressure 144/76 H 142/69 H Pulse Oximetry 99 99 Oxygen Delivery Method 03/27/25 00:30 Temperature Pulse Rate 64 Respiratory Rate 16 Blood Pressure Pulse Oximetry 100 Oxygen Delivery Method Room Air MDM - Female Genitourinary Lab Data Labs: Lab Results 03/26/25 Range/Units 16:24 Urine RBC 0-1/hpf (0-5/HPF) Urine WBC 10-30/hpf H (0-5/HPF) Ur Squamous Epith Cells 0-1 /hpf (0-5/HPF) Urine Bacteria Few (2-10) H (None) Ur Culture Indicated? Specimen cultured Vol Urine Centrifuged 10ml (spun) Urine Dip Bedside Urine Glucose Negative Bedside Urine Bilirubin - Negative Bedside Urine Ketone - Negative Urine Specific Galliano 1.010 Bedside Urine Occult Blood +/- Bedside Urine pH 6.0 Bedside Urine Protein - Negative Bedside Urine Urobilinogen - Negative Bedside Urine Nitrite - Negative Bedside Urine Leukocytes +/- 15 Esterase MDM Narrative Medical decision making narrative: Dysuria and frequency, no recent antibiotics, afebrile, sirs screen negative. Urinalysis sent from triage is suspicious for urinary tract infection, urine culture triggered by protocol. Some back pain component. Consider upper tract infection. No history of kidney stones. Advanced imaging not indicated at this time, however would consider broader spectrum longer course antibiotic. First dose oral cefdinir antibiotic given, prescription sent to her pharmacy of choice for further antibiotic course. PO pyridium dose also given, she will take OTC AZO if needed further, declines pyridium Rx. Encouraged to take antibiotics and drink plenty of fluids. Recheck symptoms if not improving in the next couple of days. Return precautions discussed. Discharged home. Discharge Plan Departure Patient Disposition: Home Clinical Impression: Urinary tract infection Activity Restrictions/Additional Instructions: Symptoms suspicious for urinary tract infection, no fever on triage, some back pain component of discomfort. No history of known kidney stones. No recent antibiotic exposure. Urinalysis suspicious for infection, urine culture pending. Advanced imaging is not indicated at this time. However given back pain component of symptoms, consider early pyelonephritis kidney infection. We will use broad-spectrum antibiotic and longer course of antibiotic in case there is upper tract infection. First dose of oral cefdinir antibiotic given in the emergency department, prescription for further course of cefdinir antibiotics sent to your pharmacy. Take antibiotics as directed. Drink plenty of fluids. Recheck symptoms with your regular doctor if not improving in the next couple of days. Return to this/nearest emergency department for any change worsening symptoms or any concerns prior. Prescriptions: New cefdinir 300 mg capsule 300 mg PO BID 10 Days Qty: 20 0RF No Action estradiol 0.01 % (0.1 mg/gram) cream See Rx Instructions vaginal DAILY Qty: 42.5 12RF Rx Instructions: pea size amount (sparingly) to external female area QHS. (if using internally -- no more than 1/2 applicator full 3 times/week) levothyroxine 25 mcg tablet 25 mcg PO DAILY Qty: 90 1RF rizatriptan 10 mg tablet See Rx Instructions PO .COMPLEX PRN (Reason: migraine headache) Qty: 12 0RF Rx Instructions: take 1 tab at onset of headache; if no relief may repeat 1 tab after at least 2 hrs; max = 3 tabs/24 hr orally PRN; albuterol sulfate [Ventolin HFA] 90 mcg/actuation HFA aerosol inhaler See Rx Instructions inhalation Q4-6H PRN (Reason: shortness of breath or wheezing) Qty: 8.5 1RF Rx Instructions: 1 to 2 puffs inhaled every 4-6 hours PRN; semaglutide 14 mg tablet 14 mg PO DAILY Qty: 90 0RF dextroamphetamine-amphetamine [Adderall] 10 mg tablet 10 mg PO DAILY Qty: 30 0RF progesterone micronized 100 mg capsule 200 mg PO QAM Rx Instructions: 10 days per month; repeat cycle estradiol 0.05 mg/24 hr patch weekly 1 patch transdermal QWEEK Referrals: Yolande Sparks MD [Primary Care Provider, Family Practice] Stand Alone Forms: Patient Portal/API
[2025-03-27 01:00] VITALS: BP 129/86; PULSE 67; O2SAT 99
[2025-03-27] MEDS: CEFDINIR 300 MG CAPSULE PO (01:06)
[2025-03-27] MEDS: PHENAZOPYRIDINE 100 MG TABLET 200 MG PO (01:08)
== END 2025-03-27 01:21 | disposition home or self-care (01) ==
PROVIDERS: Family Medicine; Emergency Provider Emergency Medicine; PCP Family Medicine
DX: N39.0 Urinary tract infection, site not specified (principal); M54.9 Dorsalgia, unspecified
CPT/HCPCS: 81003; 81015; 87077; 87086; 87186; 99283

== ENCOUNTER → 2025-06-13 10:41 | Outpatient (CLI) | payer MEDICARE, SELFPAY ==
[2025-04-21 12:08] VITALS: BMI 33.0
--- NOTE | 2025-06-13 10:42 | DI.MRI.S_ITS ---
PROCEDURE: MR ANKLE LT WO CON INDICATIONS: Persistent ankle pain instability, normal x-ray TECHNIQUE: Noncontrast sagittal T1 spin echo and T2 fast spin echo with fat saturation, axial proton density fast spin echo and T2 fast spin echo with fat saturation, coronal T1 spin echo and T2 fast spin echo with fat saturation through the ankle/hindfoot. COMPARISON: [facility] ([facility]), CR, XR ANKLE LT MIN 3V, 04/21/2025, 14:41. FINDINGS: Image quality: Excellent Tendons: Mild tenosynovitis of the posterior tibialis. The flexor digitorum longus, and the flexor hallucis longus are unremarkable. The extensor tendons are unremarkable. Moderate tenosynovitis of the peroneal tendon, with full-thickness longitudinal split tear of the peroneal brevis at the level of the lateral malleolus. No tear of the peroneal longus. The distal Achilles tendon is unremarkable. Mild subcutaneous edema posterior to the Achilles tendon. Ligaments: The anterior and posterior tibiofibular ligament are intact. Partial-thickness tear of the anterior talofibular ligament, at the fibular insertion (05:18). The posterior talofibular ligament is intact. The deep portion of the deltoid ligament is unremarkable. Sinus tarsi: No fibrosis Plantar fascia: Unremarkable Muscles: Normal in signal. Bones: 4 mm subchondral cystic changes with marrow edema at the medial talus dome, representing stage II osteochondral injury. Associated small area of full- thickness chondral loss overlying the medial talus dome. Additional 2 mm subchondral cystic changes at the lateral talus dome, representing stage II osteochondral injury as well. Mild subchondral cystic changes at the medial aspect of the tibial plafond, degenerative. No acute fracture. Subchondral cystic changes with marrow edema of the fibula hallucal sesamoid, representing sesamoiditis, incompletely evaluated. Small effusion in the posterior subtalar recess. Mild subcutaneous edema in the posterior and the lateral ankle. IMPRESSION: 1. Moderate tenosynovitis of the peroneal tendons. Full-thickness longitudinal split tear of the peroneal brevis. 2. Partial-thickness tear of the anterior talofibular ligament. 3. 4 mm stage II osteochondral injury with overlying full-thickness chondral loss in the medial talus dome. 4. 2 mm stage II osteochondral injury in the lateral talus dome. 5. Mild degenerative changes of the tibiotalar joint. 6. Fibula hallucal sesamoiditis, incompletely evaluated. Dictated by: Karen Mahajan M.D. on 06/13/2025 at 11:34 Approved by: Karen Mahajan M.D. on 06/13/2025 at 11:46
== END ==
PROVIDERS: PCP Family Medicine; Referring Provider Family Medicine; Visit Provider Family Medicine
DX: S86.312A Strain of muscle(s) and tendon(s) of peroneal muscle group at lower leg level, left leg, initial encounter (principal); S93.492A Sprain of other ligament of left ankle, initial encounter; M65.872 Other synovitis and tenosynovitis, left ankle and foot; M25.872 Other specified joint disorders, left ankle and foot; M25.572 Pain in left ankle and joints of left foot
CPT/HCPCS: 73721